=== PATIENT | female | born 1975 | race Caucasian/White ===

== ENCOUNTER 2017-03-14 13:57 | Emergency (ER) | payer BC ==
--- NOTE | 2017-03-14 14:06 | UC ---
Laceration HPI - HPI Summary HPI Summary: 41 YEAR OLD FEMALE PRESENTS WITH COMPLAINS OF LEFT THUMB LACERATION. - History Of Current Complaint Stated Complaint: LEFT THUMB LACERATION Time Seen by Provider: 03/14/17 14:03 Hx Obtained From: Patient Mechanism Of Injury: Sharp Trauma Severity: Moderate Pain Scale Used: 0-10 Numeric - 5 Aggravating Factors: Nothing - Allergies/Home Medications Allergies/Adverse Reactions: Allergies Allergy/AdvReac Type Severity Reaction Status Date / Time Amoxicillin Allergy Unknown Verified 03/14/17 14:17 Reaction Details Codeine Allergy Fever Verified 03/14/17 14:17 Oxycodone Allergy "I get Verified 03/14/17 14:17 really weird." Penicillins Allergy Unknown Verified 03/14/17 14:17 Reaction Details Ciprofloxacin [From Cipro] AdvReac "gave me a Verified 03/14/17 14:17 really uncomfortable mental state" Erythromycin AdvReac "stomach Verified 03/14/17 14:17 problem or a rash" Tetracyclines & Related AdvReac "yeast Verified 03/14/17 14:17 infection" Home Medications: Home Medications Amitriptyline TAB* [Elavil TAB*] 30 mg PO BEDTIME 03/14/17 [History Confirmed ] Gabapentin CAP(*) [Neurontin 100 mg CAP(*)] 200 mg PO BID 03/14/17 [History Confirmed 03/14/17] ValACYclovir (*) [Valtrex 500 mg (*)] 500 mg PO SEE INSTRUCTIONS 03/14/17 [ History Confirmed 03/14/17] traMADol TAB* [Ultram*] 25 - 50 mg PO SEE INSTRUCTIONS 03/14/17 [History Confirmed 03/14/17] PMH/Surg Hx/FS Hx/Imm Hx Previously Healthy: Yes - Surgical History Surgical History: None - Family History Known Family History: Positive: None - Social History Occupation: Employed Full-time Review of Systems Constitutional: Negative Skin: Other - LACERATION LEFT THUMB Eyes: Negative ENT: Negative Respiratory: Negative Cardiovascular: Negative Gastrointestinal: Negative Genitourinary: Negative Motor: Negative Neurovascular: Negative Musculoskeletal: Negative Neurological: Negative Psychological: Negative All Other Systems Reviewed And Are Negative: Yes Physical Exam Triage Information Reviewed: Yes Eye Exam: Normal ENT Exam: Normal Dental Exam: Normal Neck exam: Normal Neck: Positive: 1 Respiratory Exam: Normal Cardiovascular Exam: Normal Abdominal Exam: Normal Musculoskeletal Exam: Normal Neurological Exam: Normal Psychological Exam: Normal Skin: Positive: Other - LACERATION LEFT THUMB Laceration Repair - Laceration Repair 1 Description: Linear Laceration Size After Repair: Length (cm) - < 2.5 CM Modified For Repair: No Type Injection: Local Anesthesia Used: 1.0% Lido Cleansing Completed Via Routine Prep: Yes Irrigation With Pressure Irrigation Device: Yes Closure Material: Sutures - THREE , 5.0 SUTURES , NYLON Closure Method: Single Layer Suture Of: Skin Suture Type: Nylon Laceration Course/Dx - Differential Dx - Laceration/Wound Provider Diagnoses: LEFT THUMB LACERATION Discharge - Discharge Plan Condition: Stable Disposition: HOME Prescriptions: DOXYcycline CAP(*) [DOXYcycline 100MG CAP(*)] 100 mg PO BID #14 cap Fluconazole [Diflucan 150 MG (NF)] 150 mg PO ONCE #1 tab Patient Education Materials: Laceration (ED) Referrals: No Primary Care Phys,NOPCP [Primary Care Provider] -
[2017-03-14] MEDS ORDERED: Tetan/Diph/Pertus SYR(Tdap)* 0.5 ML SYR(BOOSTRIX) use SYR IM ONE (14:07)
[2017-03-14] MEDS ORDERED: Lidocaine 1% MPF* 2 ML VIAL INJ ONE (14:07)
[2017-03-14 14:29] VITALS: BP 137/81
== END 2017-03-14 15:04 | disposition home or self-care (01) ==
LOC: UCCORT 13:57
DX: S61.012A Laceration without foreign body of left thumb without damage to nail, initial encounter (principal); Z88.3 Allergy status to other anti-infective agents; Z88.5 Allergy status to narcotic agent; W45.8XXA Other foreign body or object entering through skin, initial encounter
CPT/HCPCS: 12001; 90471; 90715; 99202; G0463

== ENCOUNTER 2017-03-16 09:24 | Emergency (ER) | payer BC ==
--- NOTE | 2017-03-16 09:28 | UC ---
HPI Wound/Suture Re-check - HPI Summary HPI Summary: 41 year old presents for wound/laceration check of her left thumb. - History Of Current Complaint Stated Complaint: RECHECK WOUND Time Seen by Provider: 03/16/17 09:27 Hx Obtained From: Patient Hx Last Menstrual Period: "about a month ago" Onset/Duration: Lasting Days Severity: Moderate Pain Scale Used: 0-10 Numeric - 5 - Allergies/Home Medications Allergies/Adverse Reactions: Allergies Allergy/AdvReac Type Severity Reaction Status Date / Time Amoxicillin Allergy Unknown Verified 03/16/17 09:37 Reaction Details Codeine Allergy Fever Verified 03/16/17 09:37 Oxycodone Allergy "I get Verified 03/16/17 09:37 really weird." Penicillins Allergy Unknown Verified 03/16/17 09:37 Reaction Details Ciprofloxacin [From Cipro] AdvReac "gave me a Verified 03/16/17 09:37 really uncomfortable mental state" Erythromycin AdvReac "stomach Verified 03/16/17 09:37 problem or a rash" Tetracyclines & Related AdvReac "yeast Verified 03/16/17 09:37 infection" PMH/Surg Hx/FS Hx/Imm Hx Previously Healthy: Yes - Surgical History Surgical History: None Surgery Procedure, Year, and Place: Left Hip Labrum Tear, 12/13/16, [place]; Right Hip Labrum, 2015, [place]; Left Foot ?, 2013, [place]; L4 L5 Fusion, 2010, [place] ; Sponidylisis, 2008, [place] - Family History Known Family History: Positive: None - Social History Alcohol Use: None Substance Use Type: None Smoking Status (MU): Light Every Day Tobacco Smoker When Did the Patient Quit Smoking/Using Tobacco: "I'm in the quiting phase..." - Immunization History Most Recent Influenza Vaccination: Not the 2017/2018 Season Most Recent Tetanus Shot: "I don't know" Review of Systems Constitutional: Negative Skin: Other - left thumb laceration Eyes: Negative ENT: Negative Respiratory: Negative Cardiovascular: Negative Gastrointestinal: Negative Genitourinary: Negative Motor: Negative Neurovascular: Negative Musculoskeletal: Negative Neurological: Negative Psychological: Negative All Other Systems Reviewed And Are Negative: Yes Physical Exam Triage Information Reviewed: Yes Eye Exam: Normal ENT Exam: Normal Dental Exam: Normal Neck exam: Normal Neck: Positive: 1 Respiratory Exam: Normal Cardiovascular Exam: Normal Abdominal Exam: Normal Musculoskeletal Exam: Normal Neurological Exam: Normal Psychological Exam: Normal Skin Exam: Normal Skin: Positive: Other - left thumb laceration wound/suture check Course/Dx - Differential Dx - Laceration/Wound Provider Diagnoses: left thumb laceration wound/suture check Discharge - Discharge Plan Condition: Stable Disposition: HOME Patient Education Materials: Care For Your Stitches (ED) Referrals: No Primary Care Phys,NOPCP [Medical Doctor] -
[2017-03-16 10:01] VITALS: BP 147/91
== END 2017-03-16 10:02 | disposition home or self-care (01) ==
LOC: UCCORT 09:24
DX: S61.012A Laceration without foreign body of left thumb without damage to nail, initial encounter (principal); Z88.3 Allergy status to other anti-infective agents; Z88.5 Allergy status to narcotic agent; Z88.0 Allergy status to penicillin; F17.210 Nicotine dependence, cigarettes, uncomplicated; X58.XXXA Exposure to other specified factors, initial encounter
CPT/HCPCS: 99211; G0463

== ENCOUNTER 2017-03-21 15:33 | Emergency (ER) | payer BC ==
[2017-03-21 15:54] VITALS: BP 141/87
--- NOTE | 2017-03-21 17:34 | UC ---
HPI Wound/Suture Re-check - HPI Summary HPI Summary: Pt presents with request for suture removal in left thumb. Pt had 3 sutures placed in left thumb on 03/14/17. - History Of Current Complaint Chief Complaint: UCLaceration Stated Complaint: SUTURE REMOVAL Time Seen by Provider: 03/21/17 16:02 Hx Obtained From: Patient Hx Last Menstrual Period: 03/14/17 Onset/Duration: Sudden Onset Severity: Mild Pain Intensity: 2 Pain Scale Used: 0-10 Numeric - Allergies/Home Medications Allergies/Adverse Reactions: Allergies Allergy/AdvReac Type Severity Reaction Status Date / Time Amoxicillin Allergy Unknown Verified 03/21/17 15:54 Reaction Details Codeine Allergy Fever Verified 03/21/17 15:54 Oxycodone Allergy "I get Verified 03/21/17 15:54 really weird." Penicillins Allergy Unknown Verified 03/21/17 15:54 Reaction Details Ciprofloxacin [From Cipro] AdvReac "gave me a Verified 03/21/17 15:54 really uncomfortable mental state" Erythromycin AdvReac "stomach Verified 03/21/17 15:54 problem or a rash" Tetracyclines & Related AdvReac "yeast Verified 03/21/17 15:54 infection" PMH/Surg Hx/FS Hx/Imm Hx Previously Healthy: Yes - Surgical History Surgical History: None Surgery Procedure, Year, and Place: Left Hip Labrum Tear, 12/13/16, [place]; Right Hip Labrum, 2015, [place]; Left Foot ?, 2013, [place]; L4 L5 Fusion, 2010, [place] ; Sponidylisis, 2008, [place] - Family History Known Family History: Positive: None - Social History Occupation: Employed Full-time Lives: With Family Alcohol Use: None Substance Use Type: None Smoking Status (MU): Light Every Day Tobacco Smoker Have You Smoked in the Last Year: Yes When Did the Patient Quit Smoking/Using Tobacco: "I'm in the quiting phase..." - Immunization History Most Recent Influenza Vaccination: Not the 2017/2017 Season Most Recent Tetanus Shot: 03/14/17 Review of Systems Constitutional: Negative Skin: Other - sutures in left thumb, intact edges no redness or drainage Eyes: Negative ENT: Negative Respiratory: Negative Cardiovascular: Negative Gastrointestinal: Negative Genitourinary: Negative Motor: Negative Neurovascular: Negative Musculoskeletal: Negative Neurological: Negative Psychological: Negative Is Patient Immunocompromised?: No All Other Systems Reviewed And Are Negative: Yes Physical Exam Triage Information Reviewed: Yes Appearance: Well-Appearing Vital Signs: Initial Vital Signs Temp 98 F 03/21/17 15:50 Pulse 95 03/21/17 15:50 Resp 16 03/21/17 15:50 BP 141/87 03/21/17 15:50 Pulse Ox 100 03/21/17 15:50 Vital Signs Reviewed: No Eye Exam: Normal Neck exam: Normal Respiratory Exam: Normal Cardiovascular Exam: Normal Musculoskeletal Exam: Normal Neurological Exam: Normal Psychological Exam: Normal Skin Exam: Other - sutures intact, no s/sx infection edges well approximated Course/Dx - Differential Dx - Laceration/Wound Differential Diagnoses: Healing Wound, Suture Removal Provider Diagnoses: healing wound. suture removal of 3 sutures, pt tolerated well. Discharge - Discharge Plan Condition: Stable Disposition: HOME Patient Education Materials: Stitches Removal (ED) Referrals: Non Staff,Doctor [Primary Care Provider] - If Needed
== END 2017-03-21 16:15 | disposition home or self-care (01) ==
LOC: UCCORT 15:33
DX: Z48.02 Encounter for removal of sutures (principal)

== ENCOUNTER 2017-11-12 18:15 | Emergency (ER) | payer BC ==
[2017-11-12 18:30] VITALS: BP 148/77
--- NOTE | 2017-11-12 19:12 | UC ---
Shortness of Breath HPI - HPI Summary HPI Summary: Pt c/o sudden onset of heart palpitations and SOB that woke her from sleep last night. Pt states she has history of anxiety but is no longer taking any anti anxiety medications. Pt denies SOB, palpitations at time of exam. - History of Current Complaint Hx Obtained From: Patient Hx Last Menstrual Period: 10/15/17 ?: No Onset/Duration: Sudden Onset Timing: Intermittent Episodes Lasting: Current Severity: None Aggrevating Factors: Other - anxiety Alleviating Factors: Spontaneous Resolution - Risk Factors Pulmonary Embolism: Negative Cardiac: Negative Pseudomonas: Negative Tuberculosis: Negative <Martine Nicholson NP - Last Filed: 11/12/17 19:40> <Ruth Wiley - Last Filed: 11/12/17 20:17> - History of Current Complaint Chief Complaint: UCChestPain Stated Complaint: irregular heart beat/sob Time Seen by Provider: 11/12/17 18:56 - Allergy/Home Medications Allergies/Adverse Reactions: Allergies Allergy/AdvReac Type Severity Reaction Status Date / Time amoxicillin Allergy Unknown Verified 11/12/17 18:39 Reaction Details ciprofloxacin [From Cipro] Allergy Anxiety Verified 11/12/17 18:39 codeine Allergy Fever Verified 11/12/17 18:39 erythromycin base Allergy Rash Verified 11/12/17 18:39 oxycodone Allergy Anxiety Verified 11/12/17 18:39 Penicillins Allergy Unknown Verified 11/12/17 18:39 Reaction Details Tetracyclines AdvReac See Comment Verified 11/12/17 18:39 PMH/Surg Hx/FS Hx/Imm Hx Previously Healthy: Yes - Surgical History Surgical History: None Surgery Procedure, Year, and Place: Left Hip Labrum Tear, 12/13/16, [place]; Right Hip Labrum, 2015, [place]; Left Foot ?, 2013, [place]; L4 L5 Fusion, 2010, [place] ; Sponidylisis, 2008, [place] - Family History Known Family History: Positive: Cardiac Disease - Social History Occupation: Employed Full-time Lives: With Family Alcohol Use: None Substance Use Type: None Smoking Status (MU): Former Smoker Have You Smoked in the Last Year: Yes When Did the Patient Quit Smoking/Using Tobacco: "I'm in the quiting phase..." - Immunization History Most Recent Influenza Vaccination: Not the 2017/2017 Season Most Recent Tetanus Shot: 03/14/17 <Martine Nicholson NP - Last Filed: 11/12/17 19:40> Review of Systems Constitutional: Negative Skin: Negative Eyes: Negative ENT: Negative Respiratory: Shortness Of Breath Cardiovascular: Palpitations Gastrointestinal: Negative Genitourinary: Negative Motor: Negative Neurovascular: Negative Musculoskeletal: Negative Neurological: Negative Psychological: Anxious Is Patient Immunocompromised?: No All Other Systems Reviewed And Are Negative: Yes <Martine Nicholson NP - Last Filed: 11/12/17 19:40> Physical Exam Triage Information Reviewed: Yes Appearance: Well-Appearing Vital Signs: Initial Vital Signs Temp 98.0 F 11/12/17 18:25 Pulse 102 11/12/17 18:25 Resp 20 11/12/17 18:25 BP 148/77 11/12/17 18:25 Pulse Ox 100 11/12/17 18:25 Vital Signs Reviewed: Yes Eye Exam: Normal ENT Exam: Normal Neck exam: Normal Respiratory Exam: Normal Cardiovascular Exam: Normal Cardiovascular: Positive: RRR Musculoskeletal Exam: Normal Neurological Exam: Normal Psychological Exam: Normal Skin Exam: Normal <Martine Nicholson NP - Last Filed: 11/12/17 19:40> Vital Signs: Initial Vital Signs Temp 98.0 F 11/12/17 18:25 Pulse 102 11/12/17 18:25 Resp 20 11/12/17 18:25 BP 148/77 11/12/17 18:25 Pulse Ox 100 11/12/17 18:25 <Ruth Wiley - Last Filed: 11/12/17 20:17> Shortness of Breath Dx - Differential Dx/Diagnosis Provider Diagnoses: anxiety. heart palpitations. sob <Martine Nicholson NP Last Filed: 11/12/17 19:40> Discharge - Sign-Out/Discharge Documenting (check all that apply): Discharge/Admit/Transfer - Billing Disposition and Condition Condition: STABLE Disposition: HOME <Martine Nicholson NP Last Filed: 11/12/17 19:40> - Billing Disposition and Condition Condition: STABLE Disposition: HOME <Ruth Wiley - Last Filed: 11/12/17 20:17> - Discharge Plan Condition: Stable Disposition: HOME Patient Education Materials: Anxiety (ED), Shortness of Breath (ED) Referrals: [facility] [place] [facility] [Outside] Non Staff,Doctor [Primary Care Provider] - Additional Instructions: Please establish care with a PCP as soon as possible. We have provided a referral number for you to use to search for a PCP within the [facility] [place] system. Attestation Statement User Type: Provider - I was available for consult. This patient was seen by the LUCIA. The patient was not presented to, seen by, or examined by me. -Tamela <Ruth Wiley - Last Filed: 11/12/17 20:17>
== END 2017-11-12 19:35 | disposition home or self-care (01) ==
LOC: UCCORT 18:15
DX: F41.9 Anxiety disorder, unspecified (principal); R00.2 Palpitations; R06.02 Shortness of breath; Z87.891 Personal history of nicotine dependence; Z88.3 Allergy status to other anti-infective agents; Z88.0 Allergy status to penicillin; Z88.5 Allergy status to narcotic agent
CPT/HCPCS: 93005; 99211; G0463